=== PATIENT | female | born 1990 | race Caucasian/White ===

== ENCOUNTER 2017-10-25 20:18 | Emergency (ER) | payer OTHER ==
[2017-10-25 20:44] VITALS: BP 149/86; PULSE 63; RESP 18; TEMP 97.8
--- NOTE | 2017-10-25 20:49 | ED ---
Extremity Problem HPI - General Chief complaint: Extremity Problem,Nontraumatic Stated complaint: Foot pain Time Seen by Provider: 10/25/17 20:38 Source: patient Mode of arrival: ambulatory Limitations: no limitations - History of Present Illness Initial comments: 27-year-old female patient presents to the emergency department today for complaints of right foot pain. Patient states that this started approximately a week ago. She states that over the last couple days the pain has become much worse. States at rest the foot doesn't really bother her. She states that when she steps down on the foot it causes severe sharp pain to the arch region of the foot. She denies any recent injury to the foot. States she has had 6 fractures on this foot in the past. 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 She denies any numbness or tingling to the foot. States that she feels that her foot is swollen. Patient denies any headache, neck pain, back pain, chest pain, shortness of breath, dizziness, weakness, abdominal pain, nausea, vomiting, or difficulties with bowel movements or urination. - Related Data Home Medications Medication Instructions Recorded Confirmed Levothyroxine Sodium [Synthroid] 200 mcg PO DAILY 02/04/14 08/01/14 Previous Rx's Medication Instructions Recorded Ibuprofen [Motrin] 600 mg PO Q6HR PRN #60 tab 03/23/14 traMADol HCl [Ultram] 50 mg PO Q6H PRN #10 tab 08/01/14 Acetaminophen-Codeine 300-30mg 1 tab PO Q8H PRN #12 tablet 06/30/17 [Tylenol #3] Naproxen [EC-Naprosyn] 500 mg PO Q12H PRN #30 tablet.dr 06/30/17 Orphenadrine [Norflex] 100 mg PO Q12H #10 tablet.er 06/30/17 Allergies Allergy/AdvReac Type Severity Reaction Status Date / Time adhesive AdvReac Rash/Hives Verified 10/25/17 20:44 Review of Systems ROS Statement: Those systems with pertinent positive or pertinent negative responses have been documented in the HPI. ROS Other: All systems not noted in ROS Statement are negative. Past Medical History Past Medical History: Hypertension, Thyroid Disorder Additional Past Medical History / Comment(s): Migraines History of Any Multi-Drug Resistant Organisms: None Reported Past Surgical History: Appendectomy, Section, Orthopedic Surgery Additional Past Surgical History / Comment(s): left knee replaced-cadaver bone; Eye surgery Past Anesthesia/Blood Transfusion Reactions: Unable to Obtain Additional Past Anesthesia/Blood Transfusion Reaction / Comment(s): grandmother has had problems-possibly fever after anes. Past Psychological History: Anxiety, Depression Smoking Status: Never smoker Past Alcohol Use History: Occasional Past Drug Use History: Marijuana - Past Family History Father Family Medical History: Hypertension Mother Family Medical History: Hypertension General Exam Limitations: no limitations General appearance: alert, in no apparent distress, other (Physical well- developed, well-nourished adult female patient in no acute distress. Vital signs upon presentation are temperature 97.8F, pulse 63, respirations 18, blood pressure 149/86, pulse ox 100% on room air.) Eye exam: Present: normal appearance, PERRL, EOMI. Absent: scleral icterus, conjunctival injection, periorbital swelling ENT exam: Present: normal exam, normal oropharynx, mucous membranes moist Respiratory exam: Present: normal lung sounds bilaterally. Absent: respiratory distress, wheezes, rales, rhonchi, stridor Cardiovascular Exam: Present: regular rate, normal rhythm, normal heart sounds. Absent: systolic murmur, diastolic murmur, rubs, gallop, clicks Extremities exam: Present: normal inspection, full ROM, tenderness (Tenderness over the arch and right MTP joint.), normal capillary refill, other (Skin to the foot is pink, warm, and dry. Cap refills less than 3 seconds. Pedal posttibial pulses are 2+ and equal bilaterally.). Absent: pedal edema, joint swelling, calf tenderness Neurological exam: Present: alert, oriented X3, CN II-XII intact Psychiatric exam: Present: normal affect, normal mood Skin exam: Present: warm, dry, intact, normal color. Absent: rash Course Vital Signs 10/25/17 20:38 Temperature 97.8 F Pulse Rate 63 Respiratory 18 Rate Blood Pressure 149/86 O2 Sat by Pulse 100 Oximetry Medical Decision Making - Medical Decision Making 27-year-old female patient presents to the emergency department today for evaluation of right foot pain. Physical examination was relatively unremarkable. Patient did have tenderness over the plantar fascia. X-ray was obtained and showed no acute osseous abnormalities. I did discuss findings with the patient. Discussed diagnosis of plantar fasciitis and management at home. She is instructed to follow-up with her primary care physician for recheck of her home management techniques do not work. She is instructed to return here immediately for any new, worsening, or concerning symptoms. She verbalizes understanding and agrees with this plan. - Radiology Data Radiology results: report reviewed, image reviewed 3 views of the right foot are obtained. No fracture nor dislocation are noted. Metatarsals are intact. There are no erosions. Impression by Dr. Sanders shows normal right foot exam. No sign of inflammatory arthritis. Disposition Clinical Impression: Plantar fasciitis of right foot Disposition: HOME SELF-CARE Condition: Good Instructions: Plantar Fasciitis (ED), Plantar Fasciitis Exercises (ED) Additional Instructions: Take anti-inflammatory pain medications. Free is a 20 ounce bottle of water and use this to roll on the bottom of your foot. Follow-up with your primary care physician for recheck in 1-2 days. Consider orthotics or shoe inserts for plantar fasciitis. Return here immediately for any new, worsening, or concerning symptoms. Referrals: Saniya Morgan DO [Primary Care Provider] - 1-2 days Time of Disposition: 21:22
--- NOTE | 2017-10-25 21:14 | XR ---
EXAMINATION TYPE: XR foot complete RT DATE OF EXAM: 10/25/2017 COMPARISON: NONE HISTORY: Pain TECHNIQUE: 3 views FINDINGS: I see no fracture nor dislocation. Metatarsals are intact. There are no erosions. IMPRESSION: Normal right foot exam. No sign of inflammatory arthritis.
== END 2017-10-25 21:30 | disposition home or self-care (01) ==
LOC: EC 20:18
DX: M72.2 Plantar fascial fibromatosis (principal); E07.9 Disorder of thyroid, unspecified; Z91.048 Other nonmedicinal substance allergy status; Z79.899 Other long term (current) drug therapy
CPT/HCPCS: 99283

== ENCOUNTER 2018-03-03 17:48 | Emergency (ER) | payer OTHER ==
[2018-03-03 18:20] VITALS: BP 129/80; PULSE 83; RESP 20; TEMP 98
--- NOTE | 2018-03-03 18:41 | ED ---
General Adult HPI - General Chief complaint: Extremity Injury, Lower Stated complaint: lt foot swelling/redness Time Seen by Provider: 03/03/18 18:21 Source: patient, RN notes reviewed Mode of arrival: ambulatory Limitations: no limitations - History of Present Illness Initial comments: This is a 27-year-old female who presents to the ED with chief complaint of left foot pain and swelling x 1 week. Patient states that she has been experiencing pain and swelling at the medial aspect of her left foot up to her ankle. Patient states that she was concerned for a blood clot and she did test positive for a gene associated with a blood clotting disorder. Patient states that everybody in her family has had a blood clot. Patient states that she has never had a pulmonary embolism or DVT. She denies any recent surgeries or hospitalizations. She denies oral contraceptive use. She states that she has had numerous left knee surgeries. She denies any specific injury, trauma or fall to the left lower extremity. She states that the pain has progressively worsened over this past week. She states that it hurts to bear weight and ambulate. She describes the pain as burning, sharp and like pinpricks. Denies any fevers or chills. Denies shortness of breath or chest pain. - Related Data Home Medications Medication Instructions Recorded Confirmed Levothyroxine Sodium [Synthroid] 200 mcg PO DAILY 02/04/14 08/01/14 Previous Rx's Medication Instructions Recorded Ibuprofen [Motrin] 600 mg PO Q6HR PRN #60 tab 03/23/14 traMADol HCl [Ultram] 50 mg PO Q6H PRN #10 tab 08/01/14 Acetaminophen-Codeine 300-30mg 1 tab PO Q8H PRN #12 tablet 06/30/17 [Tylenol #3] Naproxen [EC-Naprosyn] 500 mg PO Q12H PRN #30 tablet. 06/30/17 Orphenadrine [Norflex] 100 mg PO Q12H #10 tablet.er 06/30/17 Allergies Allergy/AdvReac Type Severity Reaction Status Date / Time adhesive AdvReac Rash/Hives Verified 03/03/18 18:19 Review of Systems ROS Statement: Those systems with pertinent positive or pertinent negative responses have been documented in the HPI. ROS Other: All systems not noted in ROS Statement are negative. Past Medical History Past Medical History: Hypertension, Thyroid Disorder Additional Past Medical History / Comment(s): Migraines History of Any Multi-Drug Resistant Organisms: None Reported Past Surgical History: Appendectomy, Section, Orthopedic Surgery, Tubal Ligation Additional Past Surgical History / Comment(s): left knee replaced-cadaver bone; Eye surgery Past Anesthesia/Blood Transfusion Reactions: Unable to Obtain Additional Past Anesthesia/Blood Transfusion Reaction / Comment(s): grandmother has had problems-possibly fever after anes. Past Psychological History: Anxiety, Depression Smoking Status: Never smoker Past Alcohol Use History: None Reported Past Drug Use History: Marijuana - Past Family History Father Family Medical History: Hypertension Mother Family Medical History: Hypertension General Exam - General Exam Comments Initial Comments: General: Awake and alert, well-developed; in no apparent distress. HEENT: Head atraumatic, normocephalic. Pupils are equal, round and reactive to light. Extraocular movements intact. Oropharynx moist without erythema or exudate. Neck: Supple. Normal ROM. Cardiovascular: Regular rate and rhythm. No murmurs, rubs or gallops. Chest symmetrical. Respiratory: Lungs clear to auscultation bilaterally. No wheezes, rales or rhonchi. Normal respiratory effort with no use of accessory muscles. Musculoskeletal: Normal range of motion of bilateral upper and lower extremities. There is tenderness, mild erythema and soft tissue swelling at the medial arch of the left foot. Tenderness to the medial distal left lower extremity. No obvious gross deformities. No bony point tenderness. Sensation is intact. Pulses are 2+ equal and palpable bilaterally. Skin: [place], warm and dry without rashes. Neurological: Alert and oriented x3. CN II-XII grossly intact. Speech is fluent and answers are appropriate. No focal neuro deficits. Psychiatric: Normal mood and affect. No overt signs of depression or anxiety noted. Limitations: no limitations Course Vital Signs 03/03/18 18:18 Temperature 98 F Pulse Rate 83 Respiratory 20 Rate Blood Pressure 129/80 O2 Sat by Pulse 98 Oximetry Medical Decision Making - Medical Decision Making This is a 27-year-old female who presents to the emergency department with chief complaint of left foot pain and swelling. Patient denies any injuries. She states that swelling and pain have been present for one week. Patient was concerned for a blood clot as she does have itching for a blood clotting disorder and it went to her family. On physical examination, there is tenderness and mild soft tissue swelling to the medial aspect of the left foot. Ultrasound venous Doppler was obtained which revealed no evidence for an acute DVT. No signs of infection. No injuries. Case discussed with attending physician, Dr. Saleh. Recommend rest, ice, elevation and follow-up with primary care provider. Vital signs are stable and patient is in no acute distress. She is neurovascularly intact. She'll be discharged home at this time. She is in agreement with plan and voices understanding. All questions answered. - Radiology Data Radiology results: report reviewed Ultrasound venous Doppler duplex left lower extremity impression: Negative for DVT left lower extremity. Disposition Clinical Impression: Left foot pain Disposition: HOME SELF-CARE Condition: Good Instructions: RICE Therapy (ED) Additional Instructions: Please follow up with primary care provider within 1-2 days. Return to emergency department if symptoms should worsen or any concerns arise. Is patient prescribed a controlled substance at d/c from ED?: No Referrals: Saniya Morgan DO [Primary Care Provider] - 1-2 days Time of Disposition: 20:05
--- NOTE | 2018-03-03 19:39 | US ---
EXAMINATION TYPE: US venous doppler duplex LE LT DATE OF EXAM: 03/03/2018 7:05 PM COMPARISON: NONE CLINICAL HISTORY: Pain. Left foot pain SIDE PERFORMED: Left lower extremity TECHNIQUE: The lower extremity deep venous system is examined utilizing real time linear array sonog jesus with graded compression, doppler sonography and color-flow sonography. VESSELS IMAGED: External Iliac Vein (EIV) Common Femoral Vein Deep Femoral Vein Greater Saphenous Vein * Femoral Vein Popliteal Vein Small Saphenous Vein * Proximal Calf Veins (* superficial vessels) FINDINGS: Grayscale, color doppler, spectral doppler imaging performed of the deep veins of the lower extremities. There is normal flow, compressibility, vascular waveforms. IMPRESSION: NEGATIVE FOR DVT LEFT LOWER EXTREMITY.
== END 2018-03-03 20:11 | disposition home or self-care (01) ==
LOC: EC 17:48
DX: M79.672 Pain in left foot (principal); E07.9 Disorder of thyroid, unspecified; Z98.890 Other specified postprocedural states; Z79.899 Other long term (current) drug therapy; Z91.048 Other nonmedicinal substance allergy status
CPT/HCPCS: 99283

== ENCOUNTER 2018-08-27 23:17 | Emergency (ER) | payer OTHER ==
[2018-08-27 23:37] VITALS: BP 145/100; PULSE 79; RESP 18; TEMP 97.5
[2018-08-28] MEDS ORDERED: KETOROLAC 30 MG/ML 1 ML VIAL IVP STA (00:37)
[2018-08-28] MEDS ORDERED: SODIUM CHLORIDE 0.9% 1,000 ML IV ONE (00:37)
[2018-08-28] MEDS ORDERED: diphenhydrAMINE 50 MG/ML 1 ML VIAL IVP STA (00:37)
[2018-08-28] MEDS ORDERED: METOCLOPRAMIDE 5 MG/ML 2 ML VIAL IVP STA (00:37)
[2018-08-28] MEDS ORDERED: methylPREDNISolone SOD SUCCI 125 MG/2 ML VIAL IV STA (01:24)
[2018-08-28] MEDS ORDERED: HYDROmorphone 1 MG/ML 1 ML SYRINGE IVP STA (01:24)
--- NOTE | 2018-08-28 02:15 | ED ---
Headache HPI - General Chief Complaint: Headache Stated Complaint: migraine Time Seen by Provider: 08/28/18 00:06 Mode of arrival: ambulatory Limitations: no limitations - History of Present Illness Initial Comments: 28-year-old female patient presents to the emergency department today with complaints of migraine headache. Patient is reporting headache to the right side of her head with pressure behind the right eye. Patient has had nausea and several episodes of vomiting with this. States she is unable to keep down any food or fluids today. Patient does have history of migraine headache and states that her symptoms are consistent with her usual migraine pattern. She denies any new symptoms with this headache. States that she did take rizatriptan, exedrin migraine, and tylenol for symptom relief today, but they were not effective. Patient denies any chance of . Denies any abdominal pain. Patient denies any recent rash, fever, chills, shortness breath , chest pain, abdominal pain, diarrhea, constipation, back pain, numbness, tingling, dizziness, weakness, hematuria, dysuria, urinary urgency, urinary frequency, or any other complaints. - Related Data Home Medications Medication Instructions Recorded Confirmed Levothyroxine Sodium [Synthroid] 200 mcg PO DAILY 02/04/14 08/01/14 Previous Rx's Medication Instructions Recorded Ibuprofen [Motrin] 600 mg PO Q6HR PRN #60 tab 03/23/14 traMADol HCl [Ultram] 50 mg PO Q6H PRN #10 tab 08/01/14 Acetaminophen-Codeine 300-30mg 1 tab PO Q8H PRN #12 tablet 06/30/17 [Tylenol #3] Naproxen [EC-Naprosyn] 500 mg PO Q12H PRN #30 tablet. 06/30/17 Orphenadrine [Norflex] 100 mg PO Q12H #10 tablet.er 06/30/17 Allergies Allergy/AdvReac Type Severity Reaction Status Date / Time adhesive AdvReac Rash/Hives Verified 03/03/18 18:19 Review of Systems ROS Statement: Those systems with pertinent positive or pertinent negative responses have been documented in the HPI. ROS Other: All systems not noted in ROS Statement are negative. Past Medical History Past Medical History: Hypertension, Thyroid Disorder Additional Past Medical History / Comment(s): Migraines History of Any Multi-Drug Resistant Organisms: None Reported Past Surgical History: Appendectomy, Section, Orthopedic Surgery, Tubal Ligation Additional Past Surgical History / Comment(s): left knee replaced-cadaver bone; Eye surgery Past Anesthesia/Blood Transfusion Reactions: Unable to Obtain Additional Past Anesthesia/Blood Transfusion Reaction / Comment(s): grandmother has had problems-possibly fever after anes. Past Psychological History: Anxiety, Depression Smoking Status: Never smoker Past Alcohol Use History: None Reported Past Drug Use History: Marijuana - Past Family History Father Family Medical History: Hypertension Mother Family Medical History: Hypertension General Exam Limitations: no limitations General appearance: alert, in no apparent distress, other (This is a well- developed, well-nourished adult female patient in no acute distress. Vital signs upon presentation are temperature 97.5F, pulse 79, respirations 18, blood pressure 145/100, pulse ox 100% on room air.) Eye exam: Present: normal appearance, PERRL, EOMI. Absent: scleral icterus, conjunctival injection, nystagmus, periorbital swelling ENT exam: Present: normal exam, normal oropharynx, mucous membranes moist Respiratory exam: Present: normal lung sounds bilaterally. Absent: respiratory distress, wheezes, rales, rhonchi, stridor Cardiovascular Exam: Present: regular rate, normal rhythm, normal heart sounds. Absent: systolic murmur, diastolic murmur, rubs, gallop, clicks GI/Abdominal exam: Present: soft, normal bowel sounds. Absent: distended, tenderness, guarding, rebound, rigid Neurological exam: Present: alert, oriented X3, CN II-XII intact, other ( Strength in all 4 extremities is 5/5.) Psychiatric exam: Present: normal affect, normal mood Skin exam: Present: warm, dry, intact, normal color. Absent: rash Course Vital Signs 08/27/18 23:32 Temperature 97.5 F L Pulse Rate 79 Respiratory 18 Rate Blood Pressure 145/100 O2 Sat by Pulse 100 Oximetry Medical Decision Making - Medical Decision Making 28-year-old female patient presents to the emergency department today for complaints of migraine headache. Patient does have history of migraines, report symptoms are consistent with her usual migraine pattern. Physical examination is unremarkable. She is neurologically intact with no focal deficits. Patient was given IV fluids, several medications here in the emergency department. Upon reevaluation patient states symptoms have resolved. She'll be discharged home with standard follow-up with her primary care physician for recheck. Return parameters were discussed in detail. She verbalizes understanding and agrees with this plan. Disposition Clinical Impression: Migraine headache Disposition: HOME SELF-CARE Condition: Good Instructions (If sedation given, give patient instructions): Migraine Headache (ED) Additional Instructions: Increase fluids. Follow-up with her primary care physician for recheck in 1-2 days. Return to the emergency department immediately for any new, worsening, or concerning symptoms. Is patient prescribed a controlled substance at d/c from ED?: No Referrals: Saniya Morgan DO [Primary Care Provider] - 1-2 days Time of Disposition: 02:36
== END 2018-08-28 02:44 | disposition home or self-care (01) ==
LOC: EC 23:17
DX: G43.909 Migraine, unspecified, not intractable, without status migrainosus (principal); E07.9 Disorder of thyroid, unspecified; Z79.890 Hormone replacement therapy; Z91.048 Other nonmedicinal substance allergy status; Z96.652 Presence of left artificial knee joint
CPT/HCPCS: 99283; 96374; 96375 ×4; 96361; J1200; J2765; J2930; J1885; J1170

== ENCOUNTER 2019-04-26 17:48 | Emergency (ER) | payer OTHER ==
[2019-04-26 18:12] VITALS: RESP 18
[2019-04-26] MEDS ORDERED: KETOROLAC 60 MG/2 ML VIAL IM STA (19:19)
--- NOTE | 2019-04-26 19:45 | ED ---
Back Pain HPI - General Chief Complaint: Back Pain/Injury Stated Complaint: back pain Time Seen by Provider: 04/26/19 18:55 Source: patient Limitations: no limitations - History of Present Illness Initial Comments: Patient is a 28-year-old female presenting to emergency Department with complaints of low back pain 2 days. Patient states she went to squat down yesterday and then when she stood back up slightly twisted her back and now she's been having tightness in her lumbar area, bilateral sides. Patient denies any history of back surgeries. Patient tried heating yesterday and then attempted to go to work today, however she could not move very fast secondary to the pain. Patient denies any numbness and tingling into her lower extremities, saddle paresthesias, fever, chills. Patient has no other complaints at this time. Upon arrival to ER, vital signs are stable. - Related Data Home Medications Medication Instructions Recorded Confirmed Levothyroxine Sodium [Synthroid] 200 mcg PO DAILY 02/04/14 08/01/14 Previous Rx's Medication Instructions Recorded Ibuprofen [Motrin] 600 mg PO Q6HR PRN #60 tab 03/23/14 traMADol HCl [Ultram] 50 mg PO Q6H PRN #10 tab 08/01/14 Acetaminophen-Codeine 300-30mg 1 tab PO Q8H PRN #12 tablet 06/30/17 [Tylenol #3] Naproxen [EC-Naprosyn] 500 mg PO Q12H PRN #30 tablet. 06/30/17 Orphenadrine [Norflex] 100 mg PO Q12H #10 tablet.er 06/30/17 Cyclobenzaprine [Flexeril] 5 mg PO BID PRN #10 tablet 04/26/19 predniSONE 20 mg PO BID 5 Days #10 tab 04/26/19 Allergies Allergy/AdvReac Type Severity Reaction Status Date / Time adhesive AdvReac Rash/Hives Verified 03/03/18 18:19 Review of Systems ROS Statement: Those systems with pertinent positive or pertinent negative responses have been documented in the HPI. ROS Other: All systems not noted in ROS Statement are negative. Past Medical History Past Medical History: Hypertension, Thyroid Disorder Additional Past Medical History / Comment(s): Migraines History of Any Multi-Drug Resistant Organisms: None Reported Past Surgical History: Appendectomy, Section, Orthopedic Surgery, Tubal Ligation Additional Past Surgical History / Comment(s): left knee replaced-cadaver bone; Eye surgery Past Anesthesia/Blood Transfusion Reactions: Unable to Obtain Additional Past Anesthesia/Blood Transfusion Reaction / Comment(s): grandmother has had problems-possibly fever after anes. Past Psychological History: Anxiety, Depression Smoking Status: Never smoker Past Alcohol Use History: None Reported Past Drug Use History: Marijuana - Past Family History Father Family Medical History: Hypertension Mother Family Medical History: Hypertension General Exam - General Exam Comments Initial Comments: GENERAL: Well-appearing, well-nourished and in no acute distress. HEAD: Atraumatic, normocephalic. EYES: Pupils equal round and reactive to light, extraocular movements intact, sclera anicteric, conjunctiva are normal. ENT: TMs normal, nares patent, oropharynx clear without exudates. Moist mucous membranes. NECK: Normal range of motion, supple without lymphadenopathy or JVD. LUNGS: Breath sounds clear to auscultation bilaterally and equal. No wheezes rales or rhonchi. HEART: Regular rate and rhythm without murmurs, rubs or gallops. ABDOMEN: Soft, nontender, normoactive bowel sounds. No guarding, no rebound. No masses appreciated. : Deferred EXTREMITIES: Normal range of motion, no pitting or edema. No clubbing or cyanosis. No tenderness to palpation of the lumbar spine or lumbar paraspinals. Patient has decreased trunk flexion secondary to pain. Patient has 5 out of 5 strength in lower extremities. Sensation is equal and bilateral. NEUROLOGICAL: Cranial nerves II through XII grossly intact. Normal speech, normal gait. PSYCH: Normal mood, normal affect. SKIN: Warm, Dry, normal turgor, no rashes or lesions noted. Limitations: no limitations Course Vital Signs 04/26/19 04/26/19 18:10 20:02 Temperature 98.5 F 98.7 F Pulse Rate 94 89 Respiratory 18 18 Rate Blood Pressure 146/86 145/89 O2 Sat by Pulse 100 97 Oximetry Medical Decision Making - Medical Decision Making Patient is a 29-year-old female presenting with lumbar pain 2 days. Patient has no prior history of lumbar surgeries or trauma. On exam, patient has no tenderness to palpation in the lumbar spine or paraspinals. Patient has de creased check function secondary to pain. It was discussed with patient this is most likely a lumbar strain. Patient was given Toradol for pain relief as well as a trial of muscle relaxers and steroids. Patient will continue to use heat and/or ice to the area. Patient is stable for discharge at this time. Patient is in agreement with this plan of care. Return parameters were discussed with t he patient she verbalized understanding. Case discussed with Dr. Ronquillo. Disposition Clinical Impression: Low back pain Disposition: HOME SELF-CARE Condition: Stable Instructions (If sedation given, give patient instructions): Acute Low Back Pain (ED) Additional Instructions: Please return to the Emergency Department if symptoms worsen or any other concerns. Use heat and/or ice to the area as well as trial of muscle relaxers. Prescriptions: Cyclobenzaprine [Flexeril] 5 mg PO BID PRN #10 tablet PRN Reason: Muscle Spasm predniSONE 20 mg PO BID 5 Days #10 tab Is patient prescribed a controlled substance at d/c from ED?: No Referrals: Saniya Morgan DO [Primary Care Provider] - 1-2 days
[2019-04-26 20:04] VITALS: BP 145/89; PULSE 89; TEMP 98.7
== END 2019-04-26 20:02 | disposition home or self-care (01) ==
LOC: EC 17:48
DX: M54.5 Low back pain (principal); E07.9 Disorder of thyroid, unspecified; Z91.048 Other nonmedicinal substance allergy status; Z79.890 Hormone replacement therapy; X50.1XXA Overexertion from prolonged static or awkward postures, initial encounter; Y93.89 Activity, other specified
CPT/HCPCS: 99283; 96372; J1885

== ENCOUNTER 2020-08-03 08:49 | Emergency (ER) | payer OTHER ==
[2020-08-03 08:57] VITALS: RESP 18; TEMP 98.1
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
[2020-08-03 10:04] VITALS: BP 149/103; PULSE 81
== END 2020-08-03 10:51 | disposition other institution (70) ==
LOC: EC 08:49
DX: S06.6X9A Traumatic subarachnoid hemorrhage with loss of consciousness of unspecified duration, initial encounter (principal); E07.9 Disorder of thyroid, unspecified; Z79.890 Hormone replacement therapy; Z91.048 Other nonmedicinal substance allergy status; Z96.652 Presence of left artificial knee joint; V89.2XXA Person injured in unspecified motor-vehicle accident, traffic, initial encounter; Y92.410 Unspecified street and highway as the place of occurrence of the external cause
CPT/HCPCS: 70450; 72125; 99285

== ENCOUNTER 2021-04-30 17:25 | Emergency (ER) | payer OTHER ==
--- NOTE | 2021-04-30 18:58 | ED ---
General Adult HPI - General Source: patient, RN notes reviewed Mode of arrival: ambulatory Limitations: no limitations <Bharath Stallings - Last Filed: 04/30/21 18:55> <Karolina De La Torre - Last Filed: 05/01/21 02:30> - General Stated complaint: back pain - History of Present Illness Initial comments: This a 31-year-old female presents emergency Department chief complaint of severe low back pain. Patient states his started 2 weeks ago after getting out of bed. Patient states she was seen [facility] had x-rays with no acute findings was advised that she had muscle spasms of her back. She attempted to go to have a massage today which the therapist told her that she had to stop because she was given make her symptoms worse than it was not related to muscle spasm. Patient denies any bowel, bladder incontinence or retention , no saddle anesthesias no lower extremity paresthesias pain does radiate into her hips. Patient has no dysuria denies any chance . Patient states that her PCP and advised to come emergency department. (Bharath Stallings) - Related Data Home Medications Medication Instructions Recorded Confirmed Levothyroxine Sodium [Synthroid] 200 mcg PO DAILY 02/04/14 08/01/14 Previous Rx's Medication Instructions Recorded Ibuprofen [Motrin] 600 mg PO Q6HR PRN #60 tab 03/23/14 traMADol HCl [Ultram] 50 mg PO Q6H PRN #10 tab 08/01/14 Acetaminophen-Codeine 300-30mg 1 tab PO Q8H PRN #12 tablet 06/30/17 [Tylenol #3] Naproxen [EC-Naprosyn] 500 mg PO Q12H PRN #30 tablet.dr 06/30/17 Orphenadrine [Norflex] 100 mg PO Q12H #10 tablet.er 06/30/17 Cyclobenzaprine [Flexeril] 5 mg PO BID PRN #10 tablet 04/26/19 predniSONE [Deltasone] 20 mg PO BID 5 Days #10 tab 04/26/19 predniSONE 50 mg PO DAILY #5 tab 04/30/21 Allergies Allergy/AdvReac Type Severity Reaction Status Date / Time adhesive AdvReac Rash/Hives Verified 04/30/21 19:00 Review of Systems ROS Other: All systems not noted in ROS Statement are negative. <Bharath Stallings - Last Filed: 04/30/21 18:55> ROS Other: All systems not noted in ROS Statement are negative. <Karolina De La Torre - Last Filed: 05/01/21 02:30> ROS Statement: Those systems with pertinent positive or pertinent negative responses have been documented in the HPI. Past Medical History Past Medical History: Hypertension, Thyroid Disorder Additional Past Medical History / Comment(s): Migraines History of Any Multi-Drug Resistant Organisms: None Reported Past Surgical History: Appendectomy, Section, Orthopedic Surgery, Tubal Ligation Additional Past Surgical History / Comment(s): left knee replaced-cadaver bone; Eye surgery Past Anesthesia/Blood Transfusion Reactions: Unable to Obtain Additional Past Anesthesia/Blood Transfusion Reaction / Comment(s): grandmother has had problems-possibly fever after anes. Past Psychological History: Anxiety, Depression Past Alcohol Use History: None Reported Past Drug Use History: Marijuana - Past Family History Father Family Medical History: Hypertension Mother Family Medical History: Hypertension <AliceBharath cruz - Last Filed: 04/30/21 18:55> General Exam Limitations: no limitations General appearance: alert, in no apparent distress, other (Well-developed, well- nourished female in no acute distress. Initial temperature 98.1, pulse 110, respirations, blood pressure 158/103, pulse ox 98% on room air) Respiratory exam: Present: normal lung sounds bilaterally. Absent: respiratory distress, wheezes, rales, rhonchi, stridor Cardiovascular Exam: Present: regular rate, normal rhythm, normal heart sounds. Absent: systolic murmur, diastolic murmur, rubs, gallop, clicks Back exam: Present: normal inspection, muscle spasm. Absent: full ROM, CVA tenderness (R), CVA tenderness (L), vertebral tenderness Neurological exam: Present: alert, oriented X3, CN II-XII intact Psychiatric exam: Present: normal affect, normal mood Skin exam: Present: warm, dry, intact, normal color. Absent: rash <Karolina De La Torre - Last Filed: 05/01/21 02:30> Course Vital Signs 04/30/21 05/01/21 18:56 00:01 Temperature 98.1 F Pulse Rate 110 H 87 Respiratory 18 16 Rate Blood Pressure 158/103 117/82 O2 Sat by Pulse 98 95 Oximetry Medical Decision Making - Radiology Data Radiology results: report reviewed <WilKarolina - Last Filed: 05/01/21 02:30> - Medical Decision Making A 31-year-old female was evaluated for complaints of low back pain. Patient appears uncomfortable, though no significant physical exam findings were noted. CT of the lumbar spine shows mild degenerative changes. Patient was given Toradol, Norflex, and Solu-Medrol will present to the department with modest improvement in symptoms. Patient has already been prescribed Flexeril, Valium, and Neurontin therefore will be discharged home on prednisone with instructions to follow up with her primary care provider who has ordered an MRI. Return parameters were discussed detail. Patient verbalizes understanding and agrees with this plan. This patient's case was discussed with my attending Dr. Guy. (Karolina De La Torre) - Radiology Data CT of the lumbar spine was obtained. Report was reviewed in its entirety. Impression per Dr. Shukla is minimal degenerative changes. No high-grade canal or neural foraminal stenosis. No acute fracture or subluxation (Karolina De La Torre) Disposition <Bharath Stallings - Last Filed: 04/30/21 18:55> Is patient prescribed a controlled substance at d/c from ED?: No Time of Disposition: 23:34 <Karolina De La Torre - Last Filed: 05/01/21 02:30> Clinical Impression: Back pain, Mechanical back pain Disposition: HOME SELF-CARE Condition: Stable Instructions (If sedation given, give patient instructions): Acute Low Back Pain (ED) Additional Instructions: Rest as able, stretch as tolerated. Continue follow-up care with your primary care provider for further evaluation and treatment, especially concerning MRI. Take medications you have been previously prescribed for this issue. Return to the emergency department with any new, worsening, or concerning symptoms as we discussed. Prescriptions: predniSONE 50 mg PO DAILY #5 tab Referrals: Gómez Lema MD [Primary Care Provider] - 1-2 days
[2021-04-30 19:00] VITALS: TEMP 98.1
[2021-04-30] MEDS ORDERED: ORPHENADRINE 30 MG/ML 2 ML VIAL IM STA (20:45)
[2021-04-30] MEDS ORDERED: methylPREDNISolone SOD SUCCI 125 MG/2 ML VIAL IM ONE (20:45)
[2021-04-30] MEDS ORDERED: KETOROLAC 15 MG/ML 1 ML VIAL IM STA (20:45)
--- NOTE | 2021-04-30 21:54 | CT ---
EXAMINATION TYPE: CT lumbar spine wo con DATE OF EXAM: 04/30/2021 7:17 PM COMPARISON: None HISTORY: Patient woke up with low back pain 2 weeks ago. Worsening in severity. CT DLP: 1527.6 mGycm Automated exposure control for dose reduction was used. Unenhanced CT of the lumbar spine was performed. Bone and soft tissue window settings are submitted as well as coronal and sagittal reconstructions. L1-L2: Normal disc space height. No disc herniation protrusion or central stenosis. No facet joint arthropathy. No evidence for foraminal encroachment. L2-L3: Normal disc space height. No disc herniation protrusion or central stenosis. No facet joint arthropathy. No evidence for foraminal encroachment. L3-L4: Normal disc space height. No disc herniation protrusion or central stenosis. No facet joint arthropathy. No evidence for foraminal encroachment. L4-L5: Normal disc space height. Minimal disc bulge. Mild facet joint arthropathy. No evidence for f oraminal encroachment. L5-S1: Mild disc bulge. No facet joint arthropathy. No evidence for foraminal encroachment. Splenule. IMPRESSION: Minimal degenerative changes. No high-grade canal or neuroforaminal stenosis. No acute fracture or saucedo bluxation.
[2021-05-01 00:02] VITALS: BP 117/82; PULSE 87; RESP 16
== END 2021-05-01 00:02 | disposition home or self-care (01) ==
LOC: EC 17:25
DX: M51.36 Other intervertebral disc degeneration, lumbar region (principal); I10 Essential (primary) hypertension; E07.9 Disorder of thyroid, unspecified; F41.9 Anxiety disorder, unspecified; F32.9 Major depressive disorder, single episode, unspecified; F12.90 Cannabis use, unspecified, uncomplicated; Z90.49 Acquired absence of other specified parts of digestive tract; Z98.51 Tubal ligation status
CPT/HCPCS: 99283; 96372 ×3; 72131; J2360; J2930; J1885